=== PATIENT | male | born 1985 | race African-American/Black ===

== ENCOUNTER 2020-02-02 14:35 | Emergency (ER) | payer BC ==
[~2020-02-02] VITALS: Ht 165.1 cm; Wt 79.0 kg
--- NOTE | 2020-02-02 15:11 | PHYS DOC ---
Past Medical History Past Medical History: No Pertinent History Past Surgical History: No Surgical History Smoking Status: Never Smoker Alcohol Use: None General Adult EDM: Chief Complaint: TESTICULAR PAIN OR INJURY HPI: HPI: Patient is a 34 year old male who presents with left testicular pain that he noticed 3 days ago after he had sexual intercourse. Patient states that he took some ibuprofen and the pain went away. Patient states the very next day Tuesday, he again had left-sided testicular pain after sex. Patient states that he did not really feel for any lumps or lesions nor did he do a self-examination of his testicles. Patient states that he just took ibuprofen which relieved his pain from a 5/10 on a 1-10 pain scale to a 0/10 pain. Patient states that he does not have pain at this time, but became concerned when his friend told him that he might have a twisting of his testicles which could possibly need surgery. Patient denies any fever or chills, visual changes, nasal congestion cough or shortness of breath. Patient denies any chest pains with swelling of his extremities, any abdominal pain, nausea, vomiting, diarrhea, or constipation. Patient denies any problems urinating, patient denies any STI concerns, patient denies any penile discharge or burning sensation with urination. Patient denies any lesions or rashes on his penis or genital area. Patient denies any back pain or pain in his joints. Patient denies any skin rashes. Patient denies any headaches, sensory changes, increased urination, increased thirst, swelling of his glands. Patient denies any recent depressions or anxieties, patient denies homicidal suicidal ideation. Review of Systems: Review of Systems: Constitutional: Denies fever or chills. Eyes: Denies change in visual acuity. HENT: Denies nasal congestion or sore throat. Respiratory: Denies cough or shortness of breath. Cardiovascular: Denies chest pain or edema. GI: Denies abdominal pain, nausea, vomiting, bloody stools or diarrhea. : Denies dysuria. Complains of left testicular pain after sex. Musculoskeletal: Denies back pain or joint pain. Integument: Denies rash. Neurologic: Denies headache, focal weakness or sensory changes. Endocrine: Denies polyuria or polydipsia. Lymphatic: Denies swollen glands. Psychiatric: Denies depression or anxiety. Denies homicidal or suicidal ideation. Heart Score: Risk Factors: Risk Factors: DM, Current or recent (<one month) smoker, HTN, HLP, family history of CAD, obesity. Risk Scores: Score 0 - 3: 2.5% MACE over next 6 weeks - Discharge Home Score 4 - 6: 20.3% MACE over next 6 weeks - Admit for Clinical Observation Score 7 - 10: 72.7% MACE over next 6 weeks - Early Invasive Strategies Family History: Family History: Patient denies any family history significant to this ER visit today. Current Medications: Patient states he does not take any prescription medications, patient does however state he takes an occasional Tylenol and/or ibuprofen for pain or discomfort as needed. Allergies: Allergies: Allergies Coded Allergies Type Severity Reaction Last Updated Verified No Known Drug Allergies 02/02/20 No Physical Exam: PE: Constitutional: Well developed, well nourished, no acute distress, non-toxic appearance. HENT: Normocephalic, atraumatic, bilateral external ears normal, oropharynx moist, no oral exudates, nose normal. Eyes: PERRLA, EOMI, conjunctiva normal, no discharge. Neck: Normal range of motion, no tenderness, supple, no stridor. Cardiovascular:Heart rate regular rhythm, no murmur Lungs & Thorax: Bilateral breath sounds clear to auscultation Abdomen: Bowel sounds normal, soft, no tenderness, no masses, no pulsatile masses. Skin: Warm, dry, no erythema, no rash. Back: No tenderness, no CVA tenderness. Extremities: No tenderness, no cyanosis, no clubbing, ROM intact, no edema. Neurologic: Alert and oriented X 3, normal motor function, normal sensory function, no focal deficits noted. Psychologic: Affect normal, judgement normal, mood normal. : Testicular exam elicited pain with palpation of left testicle, no swelling or masses appreciated upon palpation, no skin lesions noted, scrotal sac intact, no lesions or rashes noted on penis, penis is circumcised, no discharge noted from urethral meatus. Current Patient Data: Labs: Laboratory Tests Test 02/02/20 14:43 Urine Collection Type Clean catch Urine Color Yellow Urine Clarity Clear Urine pH 7.5 Urine Specific [place] 1.015 Urine Protein Negative mg/dL Urine Glucose (UA) Negative mg/dL Urine Ketones (Stick) Negative mg/dL Urine Blood Negative Urine Nitrite Negative Urine Bilirubin Negative Urine Urobilinogen Dipstick 1.0 mg/dL Urine Leukocyte Esterase Negative Urine RBC 0 /HPF Urine WBC 0 /HPF Urine Bacteria 0 /HPF Vital Signs: Vital Signs Date Time Temp Pulse Resp B/P (MAP) Pulse Ox O2 Delivery O2 Flow Rate FiO2 02/02/20 14:48 98.4 84 20 158/94 (115) 96 Room Air 98.4 EKG: EKG: [] Radiology/Procedures: Radiology/Procedures: REASON: LT TESTICLE PAIN, R/O TORSION VS INFECTIOUS PROCESS VS INFLAMATORY PROCESS PROCEDURE: TESTICULAR/SCROTUM Examination: Ultrasound testis HISTORY: History of left testicular pain COMPARISON: None available FINDINGS: The right testis measures 4.0 x 2.7 x 9.7 cm. The left testis measures 3.9 x 2.4 x 1.8 cm. Flow identified in the right and left testis. There is a 9.6 mm cyst identified in the right epididymis. No evidence of hydrocele identified. IMPRESSION: 1. No evidence of torsion. 2. Small 9.5 mm cyst right epididymis. Electronically signed by: Alex Shipman MD (02/02/2020 4:29 PM) [id number] DICTATED and SIGNED BY: ALEX SHIPMAN MD DATE: 02/02/20 1629 Course & Med Decision Making: Course & Med Decision Making Pertinent Labs and Imaging studies reviewed. (See chart for details) 34-year-old male patient presented to the emergency department complaining of fear that he might have something going on with his testicles that may require surgery. Patient states that 2 days ago he noticed some left-sided testicular pain after sex. Patient states he took some ibuprofen and the pain went away. Patient states the next day the pain had returned after sex. Patient again took ibuprofen and the pain went away. Patient states that a friend told him he might have something going on that might require surgery so he came to the ER to seek help. Patient currently denies any scrotal pain. Patient denies any pain with ejaculation, patient denies any STI concerns, patient denied any penile di scharge. Physical examination revealed left sided testicular pain with palpation however no masses or lesions were noted. A testicular sonogram was ordered to rule out torsion versus infectious process versus inflammatory process along with a urinalysis. The patient's urine was not infected. The testicular sonogram read by in-house radiologist revealed a small epididymal cyst on the right, left testicle normal, no torsions were noted. Discussed findings with patient, need for intramuscular injection of 250 mg Rocephin and a 10-day course of doxycycline. Patient was given 1 tablet doxycycline 100 mg, along with an intramuscular injection of 250 mg Rocephin in the ER today. Patient was amenable to this plan. Patient gave verbal understanding of home ca re instructions, follow-up with urologist for further problems, prescription medication use, return to emergency department concerns. Patient had no further questions or concerns. Patient discharged home without incident. Dragon Disclaimer: Rezolve Disclaimer: This electronic medical record was generated, in whole or in part, using a voice recognition dictation system. Departure Departure Impression: Primary Impression: Epididymal cyst Disposition: 01 DC HOME SELF CARE/HOMELESS Condition: GOOD Patient Instructions: Epididymitis Additional Instructions: Take antibiotics and pain medication prescriptions as directed, follow-up with a urologist soon if symptoms do not subside, return to the emergency department for worsening symptoms and/or further concerns. Refrain from sexual activity until prescription medication regimen is complete. Scripts Doxycycline Hyclate (DOXYCYCLINE HYCLATE) 100 Mg Capsule 1 CAP PO BID for EPIDIDYMAL CYST, #20 CAP 0 Refills Prov: MARIA FERNANDA AMARAL APRN 02/02/20 Ibuprofen (IBUPROFEN) 600 Mg Tablet 600 MG PO PRN Q6HRS PRN for INFLAMMATION, #20 TAB 0 Refills Prov: MARIA FERNANDA AMARAL APRN 02/02/20 MARIA FERNANDA AMARAL APRN Feb 02, 2020 15:11
[2020-02-02 15:30] LABS: BILIRUBIN,URINE NEGATIVE (NEG); COLOR,URINE YELLOW; NITRITE,URINE NEGATIVE (NEG); PH,URINE 7.5 (<5.0-8.0); PROTEIN,URINE NEGATIVE (NEG-TRACE)
[2020-02-02 15:38] LABS: CLARITY,URINE CLEAR
[2020-02-02 15:39] LABS: BACTERIA,URINE 0 /HPF (0-FEW); RBC,URINE 0 /HPF (0-2); WBC,URINE 0 /HPF (0-4)
--- NOTE | 2020-02-02 16:32 | RAD ---
Examination: Ultrasound testis HISTORY: History of left testicular pain COMPARISON: None available FINDINGS: The right testis measures 4.0 x 2.7 x 9.7 cm. The left testis measures 3.9 x 2.4 x 1.8 cm. Flow identified in the right and left testis. There is a 9.6 mm cyst identified in the right epididymis. No evidence of hydrocele identified. IMPRESSION: 1. No evidence of torsion. 2. Small 9.5 mm cyst right epididymis. Electronically signed by: Alex Shipman MD (02/02/2020 4:29 PM) [id number]
[2020-02-02 17:00] VITALS: BP 144/82
[2020-02-02] MEDS ORDERED: DOXYCYCLINE HYCLATE 100 MG TABLET PO ONE (17:15)
[2020-02-02] MEDS ORDERED: cefTRIAXone IM 250 MG VIAL IM ONE (17:15)
[2020-02-02] MEDS ORDERED: DOXY100C2 PO (17:23)
[2020-02-02] MEDS ORDERED: IBUP-1007 PO (17:23)
== END 2020-02-02 17:32 | disposition home or self-care (01) ==
LOC: ER 14:35
DX: N50.3 Cyst of epididymis (principal)
CPT/HCPCS: 76870; 81001; 87491; 87591; 96372; 99285; J0696